=== PATIENT | female | born 1985 | race Two or more races ===

== ENCOUNTER 2017-05-30 05:38 | Emergency (ER) | payer OTHER ==
[~2017-05-30] VITALS: Ht 165.1 cm; Wt 68.0 kg
[~2017-05-30 05:38] MED LIST: ZANTAC150 MG PO
== END 2017-05-30 12:35 | disposition home or self-care (01) ==
LOC: ER 05:38
DX: R10.31 Right lower quadrant pain (principal)

== ENCOUNTER 2017-11-03 08:42 | Emergency (ER) | payer OTHER ==
[~2017-11-03] VITALS: Ht 162.6 cm; Wt 70.8 kg
== END 2017-11-03 10:47 | disposition home or self-care (01) ==
LOC: ER 08:42
DX: B34.9 Viral infection, unspecified (principal); J11.1 Influenza due to unidentified influenza virus with other respiratory manifestations; R51 Headache

== ENCOUNTER 2025-01-15 23:47 | Emergency (ER) | payer OTHER ==
[~2025-01-15] VITALS: Ht 162.6 cm; Wt 108.9 kg
[2025-01-16] MEDS ORDERED: METOCLOPRAMIDE HCL 5 MG/ML VIAL IM STA (01:17)
[2025-01-16] MEDS ORDERED: KETOROLAC TROMETHAMINE 30 MG VIAL IV STA (01:18)
[2025-01-16] MEDS ORDERED: FAMOtidine 10 MG/ML (4ML VIAL) IV PUSH STA (01:19)
[2025-01-16] MEDS ORDERED: HYOSCYAMINE SULFATE 0.125 MG TAB.SUBL SL ONE (01:30)
== END 2025-01-16 04:00 | disposition home or self-care (01) ==
LOC: ER 23:47
DX: K21.9 Gastro-esophageal reflux disease without esophagitis (principal); R10.13 Epigastric pain